=== PATIENT | male | born 1945 | race Two or more races ===

== ENCOUNTER 2017-10-21 21:01 | Inpatient (IN) | payer BC, OTHER ==
[~2017-10-21] VITALS: Ht 165.1 cm; Wt 68.0 kg
[2017-10-21] MEDS ORDERED: DIOVAN40 MG PO (22:20)
[2017-10-21] MEDS ORDERED: ASPIR 8181 MG PO (22:20)
[2017-10-21] MEDS ORDERED: LIPITOR80 MG PO (22:20)
[2017-10-21 23:45] LABS: BASOPHIL % 0.2 % (0-2); PLATELET COUNT 159 x10^3mcL (130-400); RED CELL DISTRIBUTION WIDTH 13.9 % (11.5-14.5)
[2017-10-21 23:52] LABS: CALCIUM 8.7 mg/dL (8.5-10.1); CARBON DIOXIDE 25.4 mmol/L (21-32); CHLORIDE SERUM 104 mmol/L (98-107); CREATININE SERUM 0.9 mg/dL (0.7-1.3); GFR1 > 60 mL/min; GLUCOSE SERUM 151 mg/dL (74-106); POTASSIUM SERUM 4.3 mmol/L (3.5-5.1); SODIUM SERUM 135 mmol/L (136-145)
[2017-10-21 23:57] LABS: ALKALINE PHOSPHATASE 75 U/L (46-116); ALT/SGPT 20 U/L (16-63); AST/SGOT 15 U/L (15-37); BILIRUBIN TOTAL 0.3 mg/dL (0.20-1.00); LIPASE 89 IU/L (73-393); TOTAL PROTEIN, SERUM 6.3 g/dL (6.4-8.2)
[2017-10-22] VITALS (7 sets, daily range): BP systolic 92–121; BP diastolic 50–65
[2017-10-22 01:20] LABS: microscopic required? NO
[2017-10-22 01:21] LABS: MAGNESIUM 1.9 mg/dL (1.8-2.4); PHOSPHOROUS 2.7 mg/dL (2.5-4.9)
[2017-10-22 01:27] LABS: CHOLESTEROL/HDL RATIO 2.4; T3 TOTAL 1.19 ng/mL
[2017-10-22 01:29] LABS: FREE T4 1.08 ng/dL (0.76-1.46); FREE THYROXINE INDEX 2.7 ug/dL (1.4-4.5); T4(THYROXINE) 8.3 ug/dL (4.7-13.3)
[2017-10-22 01:56] LABS: urine erythrocyte NEGATIVE (NEGATIVE)
[2017-10-22 02:21] LABS: AMPHETAMINE QUAL UR NONE DETECTED (NEG <=1000)
[2017-10-22 07:11] LABS: CALCIUM 8.8 mg/dL (8.5-10.1); CARBON DIOXIDE 24.8 mmol/L (21-32); CHLORIDE SERUM 107 mmol/L (98-107); CREATININE SERUM 0.9 mg/dL (0.7-1.3); GFR1 > 60 mL/min; GLUCOSE SERUM 102 mg/dL (74-106); POTASSIUM SERUM 4.8 mmol/L (3.5-5.1); SODIUM SERUM 138 mmol/L (136-145)
[2017-10-22 07:19] LABS: BASOPHIL % 0.3 % (0-2); PLATELET COUNT 156 x10^3mcL (130-400); RED CELL DISTRIBUTION WIDTH 14.2 % (11.5-14.5)
[2017-10-23 05:47] VITALS: BP 104/47
[2017-10-23 09:34] VITALS: BP 104/47
[2017-10-23 09:43] VITALS: BP 104/48
== END 2017-10-23 13:05 | disposition home or self-care (01) | DRG 74 ==
LOC: ED 21:01 → DU 10-22 00:51
PROVIDERS: Emergency Medicine; Family Medicine
DX: G90.8 Other disorders of autonomic nervous system (principal); R55 Syncope and collapse; F17.210 Nicotine dependence, cigarettes, uncomplicated; I50.9 Heart failure, unspecified; J44.9 Chronic obstructive pulmonary disease, unspecified; I25.2 Old myocardial infarction; Z95.5 Presence of coronary angioplasty implant and graft
CPT/HCPCS: 83880; 84439; J7030; Q0092